=== PATIENT | male | born 1950 | race Caucasian/White ===

== ENCOUNTER 2020-06-20 13:13 | Outpatient (CLI) | payer MEDICARE, OTHER ==
--- NOTE | 2020-06-20 22:49 | SLEEP CARE CONSULTATION ---
Information from patient questionnaire entered by Damaris Helms. I have reviewed and concur with the information entered by Damaris Helms. This document represents the service I personally performed and the decisions made by me, Rosie Christopher MD, [facility]. History of Present Illness Service Date and Time: 06/20/2020 1313 Reason for Visit: New patient, Previously diagnosed sleep apnea, sleep apnea on CPAP therapy Chief Complaint: reports: Other (consult) Date of Onset: forever Usual bedtime: 10 pm Time it takes to fall asleep: 2 hours Observed to quit breathing while asleep: Yes (I sleep with a CPAP) Sleeps alone due to snoring: Yes Number of times waking at night: lots Reasons for waking at night: reports: Choking, Snoring, Gasping for air Toss, Turn, or Twitch while sleeping: Yes Recalls having dreams: Yes Usually gets out of bed at: 7 am Feels refreshed in the morning: Yes Morning headache: No Sleepy or fatigued during the day: No Ever fallen asleep while driving: No Takes day naps: No Prior sleep studies: Yes Year and Where: 3 studies Additional HPI information: I had the pleasure of seeing Mr. Ramirez today regarding obstructive sleep apnea- hypopnea. As you know, he is a 70 year old gentleman who was diagnosed with the sleep-disordered breathing back in 1980s. He had several sleep studies all over the [place]. His last sleep study was in 2010 in [place]. He tried to get the report the facility was no longer in business. He recalls his obstructive sleep apnea-hypopnea to be severe. His present CPAP is a ResMed S9 set at 12 cmH2O. He uses every night and all night. The compliance data show usage in 180 out of the past 180 nights, averaging 9.2 hours a night. The residual AHI is 1.5 and average air leak is 0 L/minute. He wears a Respironics Comfort gel nasal mask. He gets his supplies from online. He finds the treatment tremendously helpful and does not sleep without his CPAP. - Parasomnia Symptoms Bothered by creepy, crawly, restless sensations in legs: No Problems with memory or concentration: No CPAP Compliance Data - Data Reviewed with Patient Average duration of nightly device use: 9 hr 11 min Compliance rate %: 99 (180 days) Current pressure setting (cmH2O): 12 Average residual AHI: 1.5 Subjective Initial [place] Sleepiness Scale score: 4 (in 2020) Past Medical History Past Medical History: reports: GERD Social History The patient's occupation is a Retired. Patient is and lives in [place]. Have you smoked in the past 12 months: No Alcohol use: Yes Alcohol amount and frequency: 1 a month Caffeine use: Yes Caffeine amount and frequency: 2 cups Allergies and Home Medications Drug allergies reviewed: Yes Home medication list reviewed: Yes Review of Systems Review of systems same as previous: Yes Neurological: reports: headaches Ear/Nose/Throat: reports: sinus problems (allergy) Endocrine: reports: thyroid disease (low) Immunologic: reports: sneezing (allergy) Physical Exam Vital signs obtained and entered by: To minimize the risk of COVID-19 exposure, detailed exam was not performed. Impression and Plan IMPRESSION: 1. Obstructive Sleep Apnea-Hypopnea Syndrome, as previously diagnosed. The patient is very compliant with the treatment. The current pressure setting appears effective and comfortable. His S9 CPAP is certainly old enough to be replaced. Because his sleep study results are nowhere to be found, I will or a home sleep apnea test (HSAT) to confirm the diagnosis and severity. An in-laboratory polysomnography may be necessary if the HSAT is negative. Plan: 1. Schedule a home sleep apnea test (HSAT). 2. Attempt to lose weight. 3. Return for a follow up after the test. Counseling Topics: Weight loss health impact Time Spent with Patient (minutes): 15
== END 2020-06-20 13:14 | disposition home or self-care (01) ==
LOC: SC 13:13
PROVIDERS: ATTEND Internal Medicine Pulmonary Disease
DX: G47.33 Obstructive sleep apnea (adult) (pediatric) (principal)
CPT/HCPCS: 99202; G0463; 99212

== ENCOUNTER 2020-07-14 09:54 | Outpatient (CLI) | payer MEDICARE, OTHER | END 2020-07-14 09:55 | disposition home or self-care (01) | LOC: SC 09:54 | PROVIDERS: ATTEND Internal Medicine Pulmonary Disease | DX: G47.33 Obstructive sleep apnea (adult) (pediatric) (principal) | CPT/HCPCS: G0399 ×2; 95806 ==

== ENCOUNTER 2020-08-05 10:39 | Outpatient (CLI) | payer MEDICARE, OTHER ==
--- NOTE | 2020-08-05 11:10 | SLEEP CARE CONSULTATION ---
Information from patient questionnaire entered by Damaris Helms. I have reviewed and concur with the information entered by Damaris Helms. This document represents the service I personally performed and the decisions made by , Christal Zabala ARNP. History of Present Illness Service Date and Time: 08/05/2020 1039 Initial [place] Sleepiness Scale score: 4 (in 2020) Current [place] Sleepiness Scale score: 0 Additional HPI information: ELLY LEVY returns for follow up and results of the recently performed home sleep study. He is currently on a CPAP machine. He is using a an over the nose, medium, Resmed Mask. He has been getting his supplies on [employer] for a long time but would like a local supplier. Sleep Study - Results Type of Sleep Study: Home sleep study Prior sleep studies: Yes Year and Where: 2010 - [place], [place] ; 1979 - unknown Polysomnography/Home Sleep Study results: Physician Impression: The quality of the study is good. The length of the study is adequate (> 240 minutes). Please also see the tabulated and graphic data. 1. Obstructive Sleep Apnea-Hypopnea (ICD-10 G47.33), severe, with an AHI of 32.0 /hr and liliya SaO2 of 83%. During the study, the patient had 122 apneas (121 obstructive, 0 central, 1 mixed) and 61 hypopneas. The longest episode lasted 64.5 seconds. The respiratory events occurred more frequently during supine sleep (supine AHI was 43.4 and non-supine, 27.84). 2. Hypoxemia (ICD-10 R09.02), mild, with the lowest oxygen saturation of 83 % and 3.5 minutes with SaO2 under 90%. Baseline oxygen saturation was normal (Average oxygen saturation was 94%). Allergies and Home Medications Home medication list reviewed: Yes (no changes) Review of Systems Review of systems same as previous: Yes (no changes) Physical Exam Heart Rate: 61 O2 Saturation: 98 Height: 6 ft 4 in Weight: 310 lb Body Mass Index: 37.7 BMI Classification: Obese Impression and Plan 1. Obstructive Sleep Apnea-Hypopnea Syndrome, severe, with lowest oxygen saturation of 83%. He is on CPAP therapy, but we were unable to download compliance information today. On CPAP therapy, the patient has better sleep quality and is more rested overall. The patients CPAP is over 8 years old and of reasonable use. Thus, the CPAP will be updated. He needs to update his supplies and was informed that another DME can be used. I will have my acute coordinator inform of DME options. A DWO prescription will then be made. Patient advised to contact this office if further supply problems. Compliance guidelines for new device and follow up discussed. Patient's apnea severity and rationale for treatment to reduce apnea, improve sleep quality and reduce cardiovascular and cerebrovascular events was reviewed. I also reviewed the benefit of consistent device use of CPAP for gastric reflux. * Transfer DME * Update machine * Change auto CPAP pressure to 11-13 cmH2O * Notify me if snoring with mask or feeling that the pressure is too much or too little * Attempt to lose weight * Call this office if any problems using CPAP * Return for follow up one month after receiving new machine, or sooner if concerns arise Counseling Topics: Weight loss health impact Visit Type: In Office Time Spent with Patient (minutes): 25 Provider Statement: I spent 100% of the Face to Face Visit with the patient with greater than 50% spent counseling the patient and coordination of care.
== END 2020-08-05 10:40 | disposition home or self-care (01) ==
LOC: SC 10:39
PROVIDERS: ATTEND Nurse Practitioner Family
DX: G47.33 Obstructive sleep apnea (adult) (pediatric) (principal); E66.9 Obesity, unspecified; Z68.37 Body mass index [BMI] 37.0-37.9, adult
CPT/HCPCS: 99213; G0463; 99212